=== PATIENT | female | born 1985 | race Caucasian/White ===

== ENCOUNTER → 2017-02-11 | Outpatient (CLI) | payer OTHER, SELFPAY | PROVIDERS: Visit Provider Emergency Medicine | DX: Z79.899 Other long term (current) drug therapy (principal) | CPT/HCPCS: 80305; 80346; G0480 ==

== ENCOUNTER → 2017-05-06 10:09 | Outpatient (REF) | payer OTHER, SELFPAY ==
[2017-05-06 18:30] LABS: Amphetamine/Metha Screen,Urine Negative ng/mL (<1000); Barbiturates Screen,Urine Negative ng/mL (<200); Benzodiazepines Screen,Urine Negative ng/mL (200); Cannabinoid Screen,Urine Positive ng/mL (<50); Cocaine Screen,Urine Negative ng/g (<300); Methadone Screen,Urine Negative ng/mL (<300); Opiate Screen,Urine Negative ng/mL (<300); Phencyclidine Screen,Urine Negative ng/mL (<25)
== END ==
LOC: LAB 10:09
PROVIDERS: Visit Provider Emergency Medicine
DX: Z79.899 Other long term (current) drug therapy (principal)
CPT/HCPCS: 80305

== ENCOUNTER → 2017-08-04 10:19 | Outpatient (REF) | payer OTHER, SELFPAY ==
[2017-08-04 14:43] LABS: Amphetamine/Metha Screen,Urine Negative ng/mL (<1000); Barbiturates Screen,Urine Negative ng/mL (<200); Benzodiazepines Screen,Urine Negative ng/mL (200); Cannabinoid Screen,Urine Positive ng/mL (<50); Cocaine Screen,Urine Negative ng/g (<300); Methadone Screen,Urine Negative ng/mL (<300); Opiate Screen,Urine Negative ng/mL (<300); Phencyclidine Screen,Urine Negative ng/mL (<25)
== END ==
LOC: LAB 10:19
PROVIDERS: Visit Provider Emergency Medicine
DX: Z79.899 Other long term (current) drug therapy (principal)
CPT/HCPCS: 80305

== ENCOUNTER → 2017-08-14 08:37 | Outpatient (CLI) | payer OTHER, SELFPAY ==
--- NOTE | 2017-08-14 08:39 | US_ITS ---
US abdomen limited History:] Right upper Quadrant pain nausea and vomiting Ordering Physician:Torey Kaur MD Patient Age: 32 years Comparison: CT scan abdomen and pelvis 11/16/2016 Findings: Pancreas:Unremarkable. No obvious mass or abnormal fluid collection. No ductal dilatation Liver:No focal liver lesions demonstrated. Homogeneous echogenicity. No intrahepatic biliary ductal dilatation evident Right Kidney:Unremarkable. The right kidney measures 11.0 x 4.9 x 5.7 cm.. No hydronephrosis Gallbladder:No gallstones, gallbladder wall thickening, pericholecystic fluid, or biliary dilatation. Impression:Negative gallbladder/right upper quadrant ultrasound
== END ==
PROVIDERS: Family Provider Emergency Medicine; PCP Emergency Medicine; Visit Provider Emergency Medicine
DX: R10.11 Right upper quadrant pain (principal)
CPT/HCPCS: 76705

== ENCOUNTER → 2017-09-01 15:51 | Outpatient (REF) | payer OTHER, SELFPAY ==
[2017-09-01 17:26] LABS: Basophils % 0.6 % (0.1-2.0); Eosinophils # 0.2 K/mm3 (0.0-0.4); Eosinophils % 2.1 % (0.1-12.0); Hematocrit 48.3 % (37.0-47.0); Hemoglobin 15.8 g/dL (12.2-16.2); Lymphocytes # 2.5 K/mm3 (0.7-4.5); Lymphocytes % 33.1 K/mm3 (10-50); Mean Corpuscular HGB Conc 32.6 g/dL (31.8-35.4); Mean Corpuscular Hemoglobin 31.3 pg (27.0-31.2); Mean Platelet Volume 8.1 fl (7.4-10.4); Monocytes # 0.3 K/mm3 (0.1-1.0); Monocytes % 3.5 % (1.7-9.3); Neutrophils # 4.5 K/mm3 (1.8-7.8); Neutrophils % 60.8 % (37.0-80.0); Platelet Count 246 K/mm3 (142-424); Red Blood Count 5.03 M/mm3 (4.20-5.40); Red Cell Distribution Width 13.4 % (11.5-17.5); White Blood Count 7.5 K/mm3 (4.8-10.8)
[2017-09-01 18:14] LABS: Alanine Aminotransferase 75 U/L (12-78); Albumin Level 4.7 gm/dL (3.4-5.0); Albumin/Globulin Ratio 1.3 (1.1-1.8); Alkaline Phosphatase 111 U/L (46-116); Anion Gap 16.8 mEq/L (5-15); Aspartate Amino Transferase 85 U/L (15-37); Bilirubin,Total 2.4 mg/dL (0.2-1.0); Blood Urea Nitrogen 5 mg/dL (7-18); Carbon Dioxide 23 mmol/L (21.0-32.0); Chloride 102 mmol/L (98-107); Creatinine,Serum 0.79 mg/dL (0.55-1.02); Estimated Glomerular Filt Rate 85 ml/min (>60); GFR (African American) 103 ML/MIN (>60); Globulin 3.7 gm/dl (1.3-3.2); Glucose 98 mg/dL (74-106); Lipase 67 u/L (73-393); Potassium 3.8 mmoL/L (3.5-5.1); Sodium 138 mmol/L (136-145); Total Protein,Serum 8.4 gm/dL (6.4-8.2)
[2017-09-01 18:29] LABS: Erythrocyte Sedimentation Rate 3 mm/hr (0-20)
== END ==
LOC: LAB 15:51
PROVIDERS: Visit Provider Emergency Medicine
DX: R10.9 Unspecified abdominal pain (principal); E66.3 Overweight
CPT/HCPCS: 80053; 83690; 85025; 85651

== ENCOUNTER → 2017-09-23 10:23 | Outpatient (CLI) | payer OTHER, SELFPAY ==
--- NOTE | 2017-09-23 10:25 | NM_ITS ---
NM hepatobiliary w pharm HISTORY: Right upper quadrant pain ITS.REASON: ruq pain ORDERING PHYSICIAN: Torey Kaur MD PATIENT AGE: 32 years COMPARISON: 08/14/2017 DOSE: 8.49 mCi technetium Choletec Fatty meal with ensure. Technologist notes that the patient felt sick before and after the fatty meal FINDINGS: Homogeneous activity is present within the hepatic parenchyma. Activity is present in the gallbladder by 10 minutes. Activity is present in the small bowel by the ejection fraction images. The gallbladder ejection fraction is calculated to be 39% which is within normal limits. IMPRESSION: No evidence of common or cystic duct obstruction with normal gallbladder ejection fraction
== END ==
PROVIDERS: Family Provider Emergency Medicine; PCP Emergency Medicine; Visit Provider Emergency Medicine
DX: R10.11 Right upper quadrant pain (principal)
CPT/HCPCS: 78227; A9537

== ENCOUNTER → 2017-12-22 13:39 | Outpatient (CLI) | payer OTHER, SELFPAY ==
[2017-12-22 14:39] LABS: Amphetamine/Metha Screen,Urine Negative ng/mL (<1000); Barbiturates Screen,Urine Negative ng/mL (<200); Benzodiazepines Screen,Urine Negative ng/mL (<200); Cannabinoid Screen,Urine Positive ng/mL (<50); Cocaine Screen,Urine Negative ng/mL (<300); Methadone Screen,Urine Negative ng/mL (<300); Opiate Screen,Urine Negative ng/mL (<300); Phencyclidine Screen,Urine Negative ng/mL (<25)
== END ==
PROVIDERS: Visit Provider Nurse Practitioner Family
DX: Z79.899 Other long term (current) drug therapy (principal)
CPT/HCPCS: 80305

== ENCOUNTER → 2018-03-23 13:43 | Outpatient (CLI) | payer OTHER, SELFPAY ==
[2018-03-23 14:33] LABS: Amphetamine/Metha Screen,Urine Negative ng/mL (<1000); Barbiturates Screen,Urine Negative ng/mL (<200); Benzodiazepines Screen,Urine Negative ng/mL (<200); Cannabinoid Screen,Urine Positive ng/mL (<50); Cocaine Screen,Urine Negative ng/mL (<300); Methadone Screen,Urine Negative ng/mL (<300); Opiate Screen,Urine Negative ng/mL (<300); Phencyclidine Screen,Urine Negative ng/mL (<25)
== END ==
PROVIDERS: Visit Provider Nurse Practitioner Family
DX: Z79.899 Other long term (current) drug therapy (principal)
CPT/HCPCS: 80305

== ENCOUNTER → 2018-07-30 14:58 | Outpatient (CLI) | payer OTHER, SELFPAY ==
[2018-07-30 17:41] LABS: C-Reactive Protein 0.8 mg/L (0.0-0.9); Creatine Kinase 57 U/L (26-192)
[2018-07-30 17:53] LABS: Erythrocyte Sedimentation Rate 11 mm/hr (0-20)
[2018-08-01 15:58] LABS: RA Latex Turbid. <10.0 IU/mL (0.0-13.9)
[2018-08-02 12:19] LABS: PTT-LA 34.7 sec (0.0-51.9)
[2018-08-02 13:22] LABS: Anti-Centromere B Antibodies <0.2 AI (0.0-0.9); Anti-Jo-1 <0.2 AI (0.0-0.9); Anti-Smith Antibody <0.2 AI (0.0-0.9); Antichromatin Antibodies 0.2 AI (0.0-0.9); Antiscleroderma-70 Antibodies 0.4 AI (0.0-0.9); RNP Antibodies <0.2 AI (0.0-0.9); Sjogren's Anti-SS-A <0.2 AI (0.0-0.9); Sjogren's Anti-SS-B <0.2 AI (0.0-0.9)
[2018-08-03 19:54] LABS: Anti-Cyclic Citrullinated Pept 6 units (0-19); Anti-DNA (DS) Ab Qn <1 IU/mL (0-9); Lupus Reflex Interpretation Comment: (.)
== END ==
PROVIDERS: Visit Provider Nurse Practitioner Family
DX: M79.671 Pain in right foot (principal); M79.672 Pain in left foot
CPT/HCPCS: 36415; 82550; 85613; 85651; 86140; 86200; 86225; 86235; 86431

== ENCOUNTER → 2018-09-17 13:58 | Outpatient (CLI) | payer OTHER, SELFPAY ==
[2018-09-17 16:05] LABS: Amphetamine/Metha Screen,Urine Negative ng/mL (<1000); Barbiturates Screen,Urine Negative ng/mL (<200); Benzodiazepines Screen,Urine Negative ng/mL (<200); Cannabinoid Screen,Urine Positive ng/mL (<50); Cocaine Screen,Urine Negative ng/mL (<300); Methadone Screen,Urine Negative ng/mL (<300); Opiate Screen,Urine Negative ng/mL (<300); Phencyclidine Screen,Urine Negative ng/mL (<25)
[2018-09-23 23:07] LABS: Alprazolam Negative (Cutoff=100); Benzodiazepines Positive ng/mL (Cutoff=100); Clonazepam Positive (.); Flurazepam Negative (Cutoff=100); Lorazepam Negative (Cutoff=100); Midazolam Negative (Cutoff=100); Temazepam Negative (Cutoff=100); Triazolam Negative (Cutoff=100)
[2018-09-24 07:10] LABS: Clonazepam Confirm 142 ng/mL (Cutoff=100)
== END ==
PROVIDERS: Visit Provider Emergency Medicine
DX: Z79.899 Other long term (current) drug therapy (principal)
CPT/HCPCS: 80305; 80346

== ENCOUNTER 2019-06-03 20:04 | Emergency (ER) | payer MEDICAID, SELFPAY ==
--- NOTE | 2019-06-03 20:06 | ECG_ITS ---
APPROVED REPORT Exam: Resting ECG HR:70 bpm ECG Measurements Heart Rate 70 AXES OH 132 P 73 QRSd 86 QRS 66 QT 404 T 63 QTc 436 <Conclusion> Normal sinus rhythm Incomplete RBBB Non-specific ST Changes Abnormal ECG Electronically signed by : Padilla Simon, 06/04/2019 14:37:04
[2019-06-03 20:14] VITALS: BP 162/102; PULSE 91; RESP 18; TEMP 37.3; O2SAT 99; BMI 32.3
--- NOTE | 2019-06-03 20:24 | CT_ITS ---
PROCEDURE: CT ABDOMEN PELVIS W CON CLINICAL INDICATION: ruq abd pain ruq abd pain, history of pancreatitis COMPARISON: ABDPELW CT ABD PELVIS W/ CONTRAST from 11/16/2016 TECHNIQUE: IV Contrast: 75ML OPTIRAY 350 Oral Contrast none given Axial images obtained with sagittal and coronal reformats. All CT scans at the facility use one or more dose reduction, viz: automated exposure control, ma/kV adjustment per patient size (including targeted exams where dose is matched to indication, i.e. head), or iterative reconstruction technique. FINDINGS: Lower thorax: No acute finding ABDOMEN: Liver: No masses or biliary dilatation. Gallbladder: Nondistended. No radio opaque stones. Pancreas: The pancreas is normal in size. There is very minimal peripancreatic fat stranding around the head and proximal body. Spleen: unremarkable Adrenals: unremarkable Kidneys/ureters: The kidneys are normal in size and show symmetrical function with minimal focal cortical scarring lower pole left kidney. There is no evidence of obstructive uropathy of either kidney. ABDOMEN & PELVIS: Stomach bowel: The stomach and small bowel appear normal. There has been a previous appendectomy. There is moderate scattered stool and gas seen throughout the colon with minimal scattered diverticuli seen in the sigmoid colon, there is no evidence of diverticulitis. Peritoneum: No abnormal fluid collections. No obvious inflammatory changes. No free air. Lymph nodes: No enlarged lymph nodes apparent. Vasculature: No evidence of abdominal aortic aneurysm. No retroperitoneal hemorrhage evident. Bones: No acute fracture PELVIS: Reproductive: unremarkable Bladder: The bladder is moderately distended with urine and appears normal, there is no free fluid in the pelvis. Appendix: Post appendectomy IMPRESSION: Mild and or early inflammatory changes around the head of the pancreas suggesting early acute pancreatitis, no other significant abnormality seen. Mild diverticulosis sigmoid colon without diverticulitis Dictated by: Dr. Hussain Lema MD 06/04/2019 09:[address] Hussain Lema MD in [place] 06/04/2019 09:29
[2019-06-03 20:28] LABS: Microscopic, Urine URINE MICROSCOPIC (MICROSCOPIC)
[2019-06-03 20:31] LABS: Basophils % 0.4 % (0.1-2.0); Eosinophils # 0.1 K/mm3 (0.0-0.4); Eosinophils % 1.7 % (0.1-12.0); Hematocrit 44.8 % (37.0-47.0); Hemoglobin 15.4 g/dL (12.2-16.2); Lymphocytes # 2.4 K/mm3 (0.7-4.5); Lymphocytes % 31.3 % (10-50); Mean Corpuscular HGB Conc 34.3 g/dL (31.8-35.4); Mean Corpuscular Hemoglobin 33.1 pg (27.0-31.2); Mean Corpuscular Volume 96.6 fl (81-99); Mean Platelet Volume 7.9 fl (7.4-10.4); Monocytes # 0.3 K/mm3 (0.1-1.0); Monocytes % 3.5 % (1.7-9.3); Neutrophils # 4.9 K/mm3 (1.8-7.8); Platelet Count 251 K/mm3 (142-424); Red Blood Count 4.64 M/mm3 (4.20-5.40); White Blood Count 7.8 K/mm3 (4.8-10.8)
[2019-06-03 20:33] LABS: Chloride 100 mmol/L (98-107); Potassium 3.6 mmoL/L (3.5-5.1); Sodium 137 mmol/L (136-145)
[2019-06-03 20:34] LABS: Appearance,Urine CLOUDY (Clear); Bilirubin,Urine Negative (Negative); Blood, Urine 1+ (Negative); Color,Urine YELLOW (Yellow); Glucose,Urine (UA) Negative (Negative); Ketones,Urine Negative (Negative); Leukocyte Esterase,Urine Negative (Negative); Nitrate,Urine POSITIVE (Negative); Protein,Urine Negative (Negative); Urobilinogen,Urine 0.2 EU/dl (0.2)
[2019-06-03 20:35] LABS: Amylase 94 U/L (30-110)
[2019-06-03 20:36] LABS: Alanine Aminotransferase 37 U/L (12-78); Albumin/Globulin Ratio 1.5 (1.1-1.8); Alkaline Phosphatase 66 U/L (38-126); Anion Gap 12.6 mEq/L (5-15); Aspartate Amino Transferase 39 U/L (14-36); Bilirubin,Total 2.1 mg/dl (0.2-1.3); Blood Urea Nitrogen 5 mg/dl (7-17); Calcium 9.9 mg/dl (8.4-10.2); Carbon Dioxide 28 mmol/L (22.0-30.0); Creatinine Clearance Estimated 165 mL/min (50-200); Estimated Glomerular Filt Rate 97 ml/min (>60); GFR (African American) 117 ML/MIN (>60); Globulin 3.3 g/dL (1.3-3.2); Glucose 111 mg/dl (74-100); Lipase 323 U/L (23-300); Total Protein,Serum 8.3 g/dl (6.3-8.2)
[2019-06-03 20:42] LABS: Bacteria,Urine 4+ /lpf
[2019-06-03 20:45] LABS: Urine Pregnancy, HCG Qual. Negative (Negative)
--- NOTE | 2019-06-03 21:09 | XR_ITS ---
PROCEDURE: XR CHEST 2V CLINICAL HISTORY: right lower lung pain at times, smoking history COMPARISON: No exams were available for comparison FINDINGS: The cardiomediastinal silhouette and pulmonary vascularity are within normal limits. The lungs are clear without infiltrates, suspicious nodules, or pleural effusions. No acute bony abnormalities. IMPRESSION: No acute findings. Dictated by: Dr. Hussain Lema MD 06/04/2019 09:[address] Hussain Lema MD in [facility] 06/04/2019 09:20
--- NOTE | 2019-06-03 21:31 | HMH.EDNVD ---
ED Disposition Clinical Impression: Pancreatitis Qualifiers: Chronicity: acute Pancreatitis type: unspecified pancreatitis type Acute pancreatitis complication: no infection or necrosis Qualified Code(s): K85.90 - Acute pancreatitis without necrosis or infection, unspecified Disposition: Home, Self-Care Condition on Discharge: Good Instructions: DI for Pancreatitis Additional Instructions: fluids and low fat diet and call pcp for gb eval Referrals: Provider,Referral, MD [Primary Care Provider] - - Critical Care Critical Care Time: No Attestation: On 06/03/19, the high probability of a clinically significant, sudden or life threatening deterioration of the following system(s) required my full and direct attention, intervention and personal management. The time I documented below is in addition to time spent performing reported procedures but includes the following listed in this critical care notation. Medical Decision Making - Medical Records Medical records reviewed: Yes: I reviewed the patient's medical records. - Tello Inquiry Pt receiving controlled substance: No Vital Signs: 06/03/19 20:14 Temperature 99.1 F Temperature Source Oral Pulse Rate [Right Brachial] 91 H Respiratory Rate 18 Blood Pressure [Right Arm] 162/102 H Blood Pressure Mean [Right Arm] 122 Blood Pressure Source [Right Arm] Automatic Cuff Blood Pressure Position [Right Arm] Sitting 02 Sat by Pulse Oximetry 99 Oxygen Delivery Method Room Air - Lab Data Lab results reviewed: Yes: I reviewed the patient's lab results. Lab Results 06/03/19 20:11: Urine Color Yellow, Urine Appearance Cloudy, Urine pH 6.0, Ur Specific [place] 1.020, Urine Protein Negative, Urine Glucose (UA) Negative, Urine Ketones Negative, Urine Blood 1+, Urine Nitrate Positive, Urine Bilirubin Negative, Urine Urobilinogen 0.2, Ur Leukocyte Esterase Negative, Urine RBC 5-10, Urine WBC 5-10, Ur Squamous Epith Cells 5-10, Urine Bacteria 4+ 06/03/19 20:11: WBC 7.8, RBC 4.64, Hgb 15.4, Hct 44.8, MCV 96.6, MCH 33.1 H, MCHC 34.3, RDW 14.0, Plt Count 251, MPV 7.9, Neut % (Auto) 63.0, Lymph % (Auto) 31.3, [place] % (Auto) 3.5, Eos % (Auto) 1.7, Baso % (Auto) 0.4, Neut # (Auto) 4.9, Lymph # (Auto) 2.4, [place] # (Auto) 0.3, Eos # (Auto) 0.1, Baso # (Auto) 0.0 06/03/19 20:11: Sodium 137, Potassium 3.6, Chloride 100, Carbon Dioxide 28, Anion Gap 12.6, BUN 5 L, Creatinine 0.70, Estimated Creat Clear 165, Estimated GFR 97, Est GFR ( Amer) 117, Glucose 111 H, Calcium 9.9, Total Bilirubin 2.1 H, AST 39 H, ALT 37, Alkaline Phosphatase 66, Total Protein 8.3 H, Albumin 5.0, Globulin 3.3 H, Albumin/Globulin Ratio 1.5, Amylase 94, Lipase 323 H 06/03/19 20:11: Urine HCG, Qual Negative Result diagrams: 06/03/19 20:11 06/03/19 20:11 Orders (Tests/Meds): ED MEDICATIONS Generic Name Dose Route Start Last Admin Trade Name Freq PRN Reason Stop Dose Admin Sodium Chloride 500 mls @ 999 mls/hr 06/03/19 21:00 06/03/19 20:52 Sod Chlor 0.9% 1000ml Bag IV 06/03/19 21:30 999 mls/hr .Q31M IVORY Administration Discontinued Medications Generic Name Dose Route Start Last Admin Trade Name Freq PRN Reason Stop Dose Admin Morphine Sulfate 4 mg 06/03/19 21:01 06/03/19 21:08 Morphine 4mg/Ml Syringe IV 06/03/19 21:02 4 mg ONCE ONE Administration Ondansetron HCl 4 mg 06/03/19 21:01 06/03/19 21:08 Zofran 4mg/2ml Vial IV 06/03/19 21:02 4 mg ONCE ONE Administration ORDERS Category Date Time Status CT abdomen pelvis w con Stat Cat Scan 06/03/19 20:24 Ordered Chest XR 2 view (NOT portable) [XR chest 2V] Stat Exams 06/03/19 21:09 Ordered Urine Culture Stat Micro 06/03/19 20:11 Received - CT Data CT Scan: Abdomen, Pelvis Time Received: 22:[address] Reviewed: Yes: I have viewed the radiologist's interpretation Preliminary Findings: Abnormal (see chart ) - ECG Data Tracing #1 Normal Sinus Rhythm: Yes Ischemic changes: non-specific ST-T wave changes
[2019-06-03 23:14] VITALS: BP 139/74; PULSE 88; RESP 19; TEMP 36.9; O2SAT 98
== END 2019-06-03 22:54 | disposition home or self-care (01) ==
PROVIDERS: Emergency Provider Emergency Medicine
DX: K85.90 Acute pancreatitis without necrosis or infection, unspecified (principal); Z79.01 Long term (current) use of anticoagulants; Z88.0 Allergy status to penicillin; Z88.2 Allergy status to sulfonamides; Z88.6 Allergy status to analgesic agent; Z91.040 Latex allergy status; I25.10 Atherosclerotic heart disease of native coronary artery without angina pectoris; K21.9 Gastro-esophageal reflux disease without esophagitis; F41.9 Anxiety disorder, unspecified; F31.9 Bipolar disorder, unspecified; F43.10 Post-traumatic stress disorder, unspecified; Z72.0 Tobacco use
CPT/HCPCS: 71046; 74177; 80053; 81001; 81025; 82150; 83690; 85025; 87086; 87088; 87186; 93005; 96365; 96375; 99283; J2405; Q9967

== ENCOUNTER 2019-06-28 07:42 | Emergency (ER) | payer MEDICAID, SELFPAY ==
[2019-06-28 07:52] VITALS: BP 145/99; PULSE 90; RESP 20; TEMP 36.4; O2SAT 98; BMI 32.3
--- NOTE | 2019-06-28 08:07 | HMH.EDGENADL ---
ED Disposition Clinical Impression: Abdominal pain, right upper quadrant Disposition: Home, Self-Care Condition on Discharge: Fair Instructions: DI for Abdominal Pain-Adult Additional Instructions: Do not drink any alcohol. Zofran, Pepcid, Gladstone as prescribed. Follow-up with Dr. Jeffries, gastroenterology. Call for appointment to be seen as soon as possible. Additional instructions for ABDOMINAL PAIN: See your physician as soon as possible for further evaluation. Return immediately if worsening abdominal pain, vomiting, shortness of breath, fever, vomiting of blood or abdominal distention. Additional instructions for CONTROLLED SUBSTANCES: You have been prescribed a medication that is a controlled substance. Controlled substances include pain medications known as opiates and sedative nerve medications known as benzodiazepines. Tramadol, fioricet, and gabapentin are also controlled substances. Some common opiates include: Codeine (such as Tylenol #3) Hydrocodone (Vicodin, Lortab, Lorcet, Gladstone) Oxycodone (Percocet, Percodan, Oxycodone, Oxy IR) Some common benzodiazepines include: Diazepam (Valium) Lorazepam (Ativan) Alprazolam (Xanax) Clonazepam (Klonopin) Oxazepam (Serax) All of these controlled substances are highly addictive and frequently abused. Misuse can and frequently does lead to addiction as well as overdose and . Medication should be stored in a locked cabinet or other secure storage unit. Do not store the medication in a motor vehicle. Short term supplies, 3 days or less, are prescribed because of the highly addictive nature of the medication. Any of the controlled substance medication NOT taken should be disposed of properly and NOT SAVED. The recommended method of disposing of unused medications is: Place the medicines in a sealable plastic bag. If the medicine is a solid, crush it or add water to dissolve it. Add something undesirable (cat litter, coffee grounds, etc.) Dispose of sealed bag in household trash Do not flush or pour unused medicines down a sink or drain. Controlled substances should not be shared, given away or sold. Because of the addictive nature and frequent abuse, these medications are sometimes stolen. These medications should be kept in a safe place where they cannot be stolen. Do not keep them in your car or purse. Lost or stolen prescriptions for controlled substances WILL NOT BE REFILLED in this emergency department, regardless of whether a police report was filed. Prescriptions: Hydrocod/Acet 5/325 mg [Gladstone 5/325mg tablet] 1 tab PO Q6HP PRN #10 tab PRN Reason: Pain Transmission Status: Received by [facility] Hydrocod/Acet 5/325 mg [Gladstone 5/325mg tablet] 1 tab PO Q6HP PRN #10 tab PRN Reason: Pain Prescription Printed Famotidine [Pepcid 20mg Tablet] 20 mg PO BID 5 Days #10 tab Transmission Status: Received by [facility] Ondansetron [Zofran 4mg ODT] 4 mg PO TIDP PRN #10 tab.rapdis PRN Reason: Nausea And Vomiting Transmission Status: Received by [facility] Referrals: Torey Kaur MD [Primary Care Provider] - Yuri Jeffries MD [Staff Physician] - - Critical Care Critical Care Time: No Attestation: On , the high probability of a clinically significant, sudden or life threatening deterioration of the following system(s) required my full and direct attention, intervention and personal management. The time I documented below is in addition to time spent performing reported procedures but includes the following listed in this critical care notation. Medical Decision Making - Medical Records Medical records reviewed: Yes: I reviewed the patient's medical records. - Tello Inquiry Pt receiving controlled substance: Yes Tello was queried for this patient: No Reason not queried -: Tello login issues Risks and benefits of using a controlled substance: were discussed with pt by me Vital
[2019-06-28 08:14] LABS: Basophils % 0.5 % (0.1-2.0); Eosinophils # 0.1 K/mm3 (0.0-0.4); Hematocrit 43.6 % (37.0-47.0); Hemoglobin 14.7 g/dL (12.2-16.2); Lymphocytes # 1.9 K/mm3 (0.7-4.5); Lymphocytes % 30.8 % (10-50); Mean Corpuscular HGB Conc 33.8 g/dL (31.8-35.4); Mean Corpuscular Hemoglobin 33.1 pg (27.0-31.2); Mean Platelet Volume 7.6 fl (7.4-10.4); Monocytes # 0.2 K/mm3 (0.1-1.0); Neutrophils % 63.8 % (37.0-80.0); Platelet Count 222 K/mm3 (142-424); Red Blood Count 4.45 M/mm3 (4.20-5.40); Red Cell Distribution Width 14.5 % (11.5-17.5); White Blood Count 6.3 K/mm3 (4.8-10.8)
[2019-06-28 08:15] LABS: Chloride 101 mmol/L (98-107)
[2019-06-28 08:16] LABS: Potassium 3.7 mmoL/L (3.5-5.1); Sodium 137 mmol/L (136-145)
[2019-06-28 08:18] LABS: Alanine Aminotransferase 38 U/L (12-78); Alkaline Phosphatase 88 U/L (38-126); Amylase 103 U/L (30-110); Anion Gap 16.7 mEq/L (5-15); Aspartate Amino Transferase 47 U/L (14-36); Bilirubin,Total 2.2 mg/dl (0.2-1.3); Blood Urea Nitrogen 7 mg/dl (7-17); Calcium 9.5 mg/dl (8.4-10.2); Carbon Dioxide 23 mmol/L (22.0-30.0); Creatinine Clearance Estimated 129 mL/min (50-200); Estimated Glomerular Filt Rate 73 ml/min (>60); GFR (African American) 88 ML/MIN (>60); Glucose 99 mg/dl (74-100)
[2019-06-28 08:19] LABS: Albumin Level 4.9 g/dl (3.5-5.0); Albumin/Globulin Ratio 1.4 (1.1-1.8); Globulin 3.4 g/dL (1.3-3.2); Lipase 128 U/L (23-300); Total Protein,Serum 8.3 g/dl (6.3-8.2)
[2019-06-28 08:30] LABS: Ethyl Alcohol < 10 mg/dl (0-10)
--- NOTE | 2019-06-28 08:30 | US_ITS ---
PROCEDURE: US GALLBLADDER CLINICAL INDICATION: RUQ pain Acute right upper quadrant pain with vomiting COMPARISON: No exams were available for comparison FINDINGS: Pancreas: Unremarkable/Not well seen Liver: Unremarkable. There is appropriate direction of blood flow within a non dilated portal vein. Right kidney: Unremarkable appearing. No hydronephrosis. Gallbladder: The gallbladder is distended measuring 12 x 4 cm. No gallbladder wall thickening, pericholecystic fluid, or gallstones apparent. Common bile duct is upper normal at 6 mm. IMPRESSION: Distended gallbladder with common bile duct upper limits of normal otherwise negative right upper quadrant ultrasound Dictated by: Puma Velazquez MD 06/28/2019 09:49 Electronically signed by Puma Velazquez MD in [place] 06/28/2019 09:49
--- NOTE | 2019-06-28 08:30 | CT_ITS ---
PROCEDURE: CT ABDOMEN PELVIS W CON CLINICAL INDICATION: abdo pain Right upper quadrant pain with nausea and vomiting COMPARISON: ABDPELW CT ABD PELVIS W/ CONTRAST from 10/14/[address] ABD PELVIS W/ CONTRAST from 02/23/2016 CT ABDOMEN PELVIS W CON from 06/03/2019 TECHNIQUE: IV Contrast: 75ML OPTIRAY 350 Oral Contrast none Axial images obtained with sagittal and coronal reformats. All CT scans at the facility use one or more dose reduction, viz: automated exposure control, ma/kV adjustment per patient size (including targeted exams where dose is matched to indication, i.e. head), or iterative reconstruction technique. FINDINGS: LOWER THORAX: There is a stable 4 mm nodule in the right lung base ABDOMEN & PELVIS: Liver, spleen, and adrenal glands have an unremarkable appearance. There remains some stranding of the fat around the pancreatic head which may be very slightly improved. Gallbladder appears slightly distended. No renal or ureteral calculi or hydronephrosis. There was reported prior appendectomy. No evidence of intestinal obstruction or free air. Right adnexal hypodensity is noted and may represent ovarian cyst measuring 3 cm. No cul-de-sac fluid or focal inflammatory change in the pelvis. No evidence of diverticulitis. There is mild thickening of the transverse and descending colon which may only be due to nondistention. Mild colitis could have a similar appearance. No acute bony anomalies. IMPRESSION: 1. There is some mild persistent stranding of the fat around the pancreatic head. Raising the suspicion of mild pancreatitis. This may be slightly improved. 2. There is mild distention of the gallbladder. Gallbladder ultrasound may provide further evaluation. 3. Mild thickening of the transverse and descending colon which may only be due to nondistention. Mild colitis is also a consideration. 4. 3 cm right ovarian cyst Dictated by: Puma Vealzquez MD 06/28/2019 09:34 Electronically signed by Puma Velazquez MD in [place] 06/28/2019 09:34
[2019-06-28 08:31] LABS: HCG Qualitative, Serum Negative (Negative)
[2019-06-28 08:49] VITALS: BP 128/70; PULSE 79
--- NOTE | 2019-06-28 09:35 | PC.NURSE ---
pt c/o anxiety, requesting medication, states she takes meds at home but has been unable to keep meds down due to vomiting
[2019-06-28 09:46] LABS: Microscopic, Urine URINE MICROSCOPIC (MICROSCOPIC)
[2019-06-28 09:49] LABS: Appearance,Urine CLEAR (Clear); Bilirubin,Urine Negative (Negative); Blood, Urine TRACE-I (Negative); Color,Urine YELLOW (Yellow); Glucose,Urine (UA) Negative (Negative); Ketones,Urine Negative (Negative); Leukocyte Esterase,Urine Negative (Negative); Nitrate,Urine Negative (Negative); Protein,Urine Negative (Negative); Specific Gravity, Urine <= 1.005 (1.005-1.030); Urobilinogen,Urine 0.2 EU/dl (0.2)
[2019-06-28 09:55] LABS: Bacteria,Urine Trace /lpf
[2019-06-28 09:59] LABS: Barbiturates Screen,Urine Negative ng/ml (<200)
[2019-06-28 10:00] LABS: Benzodiazepines Screen,Urine Negative ng/ml (<200)
[2019-06-28 10:01] LABS: Amphetamine/Metha Screen,Urine Negative ng/ml (<1000); Methadone Screen,Urine Negative ng/ml (<300)
[2019-06-28 10:02] LABS: Cannabinoid Screen,Urine Positive ng/ml (<50); Cocaine Screen,Urine Negative ng/ml (<300)
[2019-06-28 10:03] LABS: Opiate Screen,Urine Positive ng/ml (<300)
[2019-06-28 10:04] LABS: Phencyclidine Screen,Urine Negative ng/ml (<25)
--- NOTE | 2019-06-28 10:14 | PC.NURSE ---
dr Santana grewal, he is in surgery message given.
--- NOTE | 2019-06-28 10:20 | PC.NURSE ---
Dr Holloway speaking with Dr Dillon
[2019-06-28 10:51] VITALS: BP 141/88; PULSE 72; RESP 19; TEMP 36.6; O2SAT 99
--- NOTE | 2019-06-28 10:51 | SW/DCPLANNER ---
CALLED [facility] AND GOT PATIENT A RIDE HOME... PATIENT RESIDES IN MEARS.
[2019-06-28 11:15] VITALS: BP 126/73; PULSE 87; RESP 16; TEMP 36.6; O2SAT 98
== END 2019-06-28 11:17 | disposition home or self-care (01) ==
PROVIDERS: Emergency Provider Emergency Medicine; PCP Emergency Medicine
DX: K85.90 Acute pancreatitis without necrosis or infection, unspecified (principal); I25.10 Atherosclerotic heart disease of native coronary artery without angina pectoris; K21.9 Gastro-esophageal reflux disease without esophagitis; Z79.899 Other long term (current) drug therapy; F17.210 Nicotine dependence, cigarettes, uncomplicated; Z91.040 Latex allergy status; Z88.0 Allergy status to penicillin; Z88.2 Allergy status to sulfonamides; Z88.6 Allergy status to analgesic agent; F12.10 Cannabis abuse, uncomplicated; F19.10 Other psychoactive substance abuse, uncomplicated
CPT/HCPCS: 74177; 76705; 80053; 80305; 81001; 82150; 83690; 84703; 85025; 96365; 96366; 96375; 96376; 99284; J2405; Q9967

== ENCOUNTER → 2020-08-29 18:35 | Outpatient (CLI) | payer MEDICAID, SELFPAY ==
[2020-08-29 19:10] LABS: Basophils % 0.7 % (0.1-2.0); Eosinophils # 0.2 K/mm3 (0.0-0.4); Eosinophils % 4.1 % (0.1-12.0); Hematocrit 46.5 % (37.0-47.0); Hemoglobin 16.1 g/dL (12.2-16.2); Lymphocytes % 36.3 % (10-50); Mean Corpuscular HGB Conc 34.5 g/dL (31.8-35.4); Mean Corpuscular Hemoglobin 34.3 pg (27.0-31.2); Mean Corpuscular Volume 99.2 fl (81-99); Mean Platelet Volume 8.5 fl (7.4-10.4); Monocytes # 0.2 K/mm3 (0.1-1.0); Monocytes % 3.2 % (1.7-9.3); Neutrophils % 55.7 % (37.0-80.0); Platelet Count 191 K/mm3 (142-424); Red Blood Count 4.69 M/mm3 (4.20-5.40); Red Cell Distribution Width 14.8 % (11.5-17.5); White Blood Count 5.4 K/mm3 (4.8-10.8)
[2020-08-29 20:01] LABS: Alanine Aminotransferase 15 U/L (12-78); Albumin Level 4.5 g/dl (3.5-5.0); Albumin/Globulin Ratio 1.6 (1.1-1.8); Alkaline Phosphatase 59 U/L (38-126); Anion Gap 13.2 mEq/L (5-15); Aspartate Amino Transferase 22 U/L (14-36); Bilirubin,Total 1.5 mg/dl (0.2-1.3); Blood Urea Nitrogen 7 mg/dl (7-17); Calcium 9.3 mg/dl (8.4-10.2); Carbon Dioxide 26 mmol/L (22.0-30.0); Chloride 104 mmol/L (98-107); Chol/HDL Ratio 2.9 (1-3.5); Cholesterol 231 mg/dl (140-200); Estimated Glomerular Filt Rate 96 ml/min (>60); GFR (African American) 117 ML/MIN (>60); Globulin 2.9 g/dL (1.3-3.2); Glucose 108 mg/dl (74-100); HDL Cholesterol 81 mg/dl (40-60); Potassium 4.2 mmoL/L (3.5-5.1); Sodium 139 mmol/L (136-145); Total Protein,Serum 7.4 g/dl (6.3-8.2); Triglycerides 92 mg/dl (30-150); VLDL Cholesterol 18 mg/dL (0-40)
[2020-08-29 20:13] LABS: Direct LDL Cholesterol 129.77 mg/dL (100-129)
[2020-08-29 20:18] LABS: 25-OH Vitamin D, Total 23.4 ng/mL (30-100)
[2020-08-29 20:19] LABS: T4 (Thyroxine) 7.6 ug/dl (5.53-11.0)
[2020-08-29 20:32] LABS: Thyroid Stimulating Hormone 1.49 uIU/mL (0.465-4.68)
== END ==
PROVIDERS: Visit Provider Nurse Practitioner Family
DX: I25.10 Atherosclerotic heart disease of native coronary artery without angina pectoris (principal); Z79.899 Other long term (current) drug therapy
CPT/HCPCS: 80053; 80061; 82306; 84436; 84443; 85025

== ENCOUNTER → 2020-12-28 15:28 | Outpatient (CLI) | payer MEDICAID, SELFPAY ==
--- NOTE | 2020-12-28 15:37 | MR_ITS ---
PROCEDURE: MR THORACIC SPINE WO CON CLINICAL INDICATION: back and neck pain Right-sided back pain COMPARISON: MR TSW/O MRI-T-SPINE W/O from 12/08/2014 TECHNIQUE: Routine multiplanar multi echo sequences are performed without gadolinium enhancement. FINDINGS: There is normal alignment. No acute fracture apparent. Degenerative disc disease is at T7-T8 with a small left paracentral disc herniation Causing minimal impingement and contour deformity upon the anterior left aspect of the cord which is not significantly changed. There is very minimal superior disc extrusion. No other significant anomalies evident. IMPRESSION: No change mild degenerative disc disease with small left paracentral disc herniation at T7-T8 with minimal anterior impingement upon the left aspect of the cord. Dictated by: Puma Velazquez MD 12/30/2020 09:38 Puma Velazquez MD in [place] 12/30/2020 09:38
--- NOTE | 2020-12-28 15:37 | MR_ITS ---
PROCEDURE: MR CERVICAL SPINE WO CON CLINICAL INDICATION: neck pain COMPARISON: MR REDUCER/O MRI-C-SPINE W/O from 12/08/2014 TECHNIQUE: Standard multiplanar multiecho sequences are performed without contrast. 3-D MIP and myelographic images are also rendered and reviewed FINDINGS: Normal alignment. Straightening of the cervical lordosis. Minimal bulging disc C6-C7 with narrowing of the canal at 10 mm. No cord impingement or contour deformity. No disc herniation. The craniocervical junction has an unremarkable appearance. The cervical cord has an unremarkable appearance. No fracture or dislocation. IMPRESSION: Straightening of the cervical lordosis with minimal bulging disc and narrowing of the canal at C6-C7 otherwise negative Dictated by: Puma Velazquez MD 12/30/2020 08:19 Puma Velazquez MD in [place] 12/30/2020 08:19
== END ==
PROVIDERS: PCP Emergency Medicine; Visit Provider Emergency Medicine
DX: M54.2 Cervicalgia (principal); M54.12 Radiculopathy, cervical region; M54.9 Dorsalgia, unspecified
CPT/HCPCS: 72141; 72146; 76376